=== PATIENT | female | born 1945 | race Caucasian/White ===

== ENCOUNTER 2016-07-26 12:31 | Day surgery (SDC) | payer OTHER, MEDICARE ==
[2016-07-26 12:10] LABS: EOSINOPHIL 4.1 % (0-4.5); MCH 23.1 pg (25.7-33.7); MCHC 28.8 g/dl (32.0-36.0); MEAN CELL VOLUME 80.1 fl (80-96); MEAN PLT VOLUME 10.1 fl (7.5-11.1); NEUTROPHILS 76.1 % (42.8-82.8); PLATELET COUNT 155 K/MM3 (134-434); RDW 20.1 % (11.6-15.6); WHITE BLOOD COUNT 6.3 K/mm3 (4.0-10.0)
[2016-07-26 12:32] LABS: ALBUMIN 3.4 g/dl (3.4-5.0); BILIRUBIN,TOTAL 0.3 mg/dL (0.2-1.0); CALCIUM 8.8 mg/dL (8.5-10.1); CREATININE 1.3 mg/dL (0.55-1.02); TOT PROT 7.6 g/dl (6.4-8.2)
[2016-07-26 14:38] LABS: PLATELET ESTIMATE ADEQUATE (NORMAL)
[2016-07-26 14:39] LABS: ANISOCYTOSIS 1+; HYPOCHROMIA 1+
[2016-07-26] MEDS ORDERED: FUROSEMIDE 20 MG TABLET (FP) PO ONE (18:00)
[2016-07-26 21:51] LABS: BASOPHIL 1.4 % (0-2.0); EOSINOPHIL 5.9 % (0-4.5); MCH 24.6 pg (25.7-33.7); MCHC 30.6 g/dl (32.0-36.0); MEAN CELL VOLUME 80.5 fl (80-96); MEAN PLT VOLUME 10.1 fl (7.5-11.1); NEUTROPHILS 58.7 % (42.8-82.8); RDW 18.6 % (11.6-15.6)
[2016-07-26 21:59] VITALS: BP 145/77; PULSE 62; TEMP 97.5
[2016-07-26 22:10] LABS: PLATELET COUNT 148 K/MM3 (134-434); PLATELET ESTIMATE DECREASED (NORMAL)
== END 2016-07-26 22:00 | disposition home or self-care (01) ==
LOC: JONCBLOOD 12:31 → J7W 12:32 → JONCBLOOD 22:00
PROVIDERS: ATTEND Internal Medicine Hematology & Oncology
PROC: 30233N1 Transfusion of Nonautologous Red Blood Cells into Peripheral Vein, Percutaneous Approach (ICD-10-PCS; principal; 2016-07-26)
DX: K90.9 Intestinal malabsorption, unspecified (principal); K50.811 Crohn's disease of both small and large intestine with rectal bleeding
CPT/HCPCS: 36415; 36430; 80053; 85025; 86850; 86900; 86901; 86922; P9038; P9058

== ENCOUNTER 2016-11-15 07:20 | Day surgery (SDC) | payer OTHER, MEDICARE ==
[2016-11-15] MEDS ORDERED: IRON SUCROSE INJECTION 100 MG in SODIUM CHLORIDE 100 ML IVPB ONE (08:00)
[2016-11-15 17:26] VITALS: BP 122/63; PULSE 63; TEMP 97.9
--- NOTE | 2016-11-15 23:38 | HP ---
[facility] - Chief Complaint History of Present Illness: for lópez today History Source: Patient Limitations to Obtaining History: No Limitations - Past Medical History Allergies/Adverse Reactions: Allergies Allergy/AdvReac Type Severity Reaction Status Date / Time bacitracin Allergy Verified 01/17/13 11:13 [From Neosporin ([id number])] bacitracin zinc Allergy Verified 01/17/13 11:13 [From Neosporin ([id number])] neomycin sulfate Allergy Verified 01/17/13 11:13 [From Neosporin ([id number])] Penicillins Allergy Verified 01/17/13 11:13 polymyxin B Allergy Verified 01/17/13 11:13 [From Neosporin ([id number])] prednisone Allergy Verified 01/17/13 11:13 - Current Medications Current Medications: Home Medications Medication Instructions Recorded Aspirin [ASA -] 81 mg PO DAILY 01/17/13 Atorvastatin Ca [Lipitor -] 20 mg PO HS 01/17/13 Azathioprine 50 mg PO BID 01/17/13 Baclofen 20 mg PO HS PRN 01/17/13 Cetirizine HCl [Zyrtec] 10 mg PO DAILY 01/17/13 Chlorthalidone 25 mg PO DAILY 01/17/13 Cyanocobalamin (Vitamin B-12) 1,000 mcg PO DAILY 01/17/13 [Vitamin B-12] Diphenhydramine HCl [Benadryl 50 mg PO HS 01/17/13 Capsules -] Ezetimibe [Zetia] 10 mg PO DAILY 01/17/13 Folic Acid - 5 mg PO HS 01/17/13 Levothyroxine [Synthroid -] 50 mcg PO DAILY 01/17/13 Lisinopril [Prinivil -] 40 mg PO BID 01/17/13 Meloxicam [Mobic -] 7.5 mg PO BID 01/17/13 Metoprolol Succinate [Toprol XL -] 50 mg PO DAILY 01/17/13 Metronidazole 0.75% Gel [Metrogel 1 applic TP HS 01/17/13 0.75% Gel -] Montelukast Na [Singulair -] 10 mg PO HS 01/17/13 Multivitamin [Multi-Day Vitamins] 1 each PO DAILY 01/17/13 Omeprazole 20 mg PO BID 01/17/13 Polyethylene Glycol 3350 [Miralax 17 gm PO DAILY 01/17/13 255 gm Btl -] Pregabalin [Lyrica] 300 mg PO TID 01/17/13 Temazepam [Restoril] 45 mg PO HS 01/17/13 Tramadol HCl 200 mg PO DAILY 01/17/13 Zaleplon 10 mg PO HS PRN 01/17/13 Ascorbic Acid [Vitamin C] 500 mg PO DAILY 02/07/13 Satellite Physical Exam - Physical Examination Vital Signs: Vital Signs Period Temp Pulse Resp BP Sys/Fagan Pulse Ox Last 24 Hr 97.9 F 63 20 122/63 General Appearance: Well Nourished, Well Developed Lung: Clear to auscultation Heart: Regular rate & rhythm Breasts: Soft, Non-Tender Extremities: No edema Satellite Impression/Plan - Impression/Plan Impression: lópez today. next dose 11/29. folow-up in [facility] on 12/06. will obtain recent blood work resuls from 's office. Pt states that she had done blood work last week.
== END 2016-11-15 17:26 | disposition home or self-care (01) ==
LOC: JONCNONCHE 07:20 → J7W 16:10 → JONCNONCHE 17:26
PROVIDERS: ATTEND Internal Medicine Hematology & Oncology
PROC: 3E033GC Introduction of Other Therapeutic Substance into Peripheral Vein, Percutaneous Approach (ICD-10-PCS; principal; 2016-11-15)
DX: D50.9 Iron deficiency anemia, unspecified (principal)
CPT/HCPCS: 96365; J1756

== ENCOUNTER 2016-12-27 07:40 | Day surgery (SDC) | payer OTHER, MEDICARE ==
[2016-12-27] MEDS ORDERED: IRON SUCROSE INJECTION 100 MG in SODIUM CHLORIDE 100 ML IVPB ONE (10:00)
[2016-12-27 16:28] VITALS: BP 160/89; PULSE 74; TEMP 97.5
== END 2016-12-27 20:45 | disposition home or self-care (01) ==
LOC: JONCNONCHE 07:40 → J7W 16:03 → JONCNONCHE 20:45
PROVIDERS: ATTEND Internal Medicine Hematology & Oncology
PROC: 3E033GC Introduction of Other Therapeutic Substance into Peripheral Vein, Percutaneous Approach (ICD-10-PCS; principal; 2016-12-27)
DX: E61.1 Iron deficiency (principal); K90.9 Intestinal malabsorption, unspecified
CPT/HCPCS: 76700-TC; 93970-TC; 96365; J1756

== ENCOUNTER 2017-05-04 07:35 | Day surgery (SDC) | payer OTHER, MEDICARE ==
[2017-05-04] MEDS ORDERED: IRON SUCROSE INJECTION 100 MG in SODIUM CHLORIDE 100 ML IVPB ONE (10:00)
[2017-05-04 14:36] VITALS: BP 166/91; PULSE 73; TEMP 98.1
== END 2017-05-04 12:50 | disposition home or self-care (01) ==
LOC: JONCNONCHE 07:35 → J7W 11:37 → JONCNONCHE 12:50
PROVIDERS: ATTEND Internal Medicine Hematology & Oncology
PROC: 3E033GC Introduction of Other Therapeutic Substance into Peripheral Vein, Percutaneous Approach (ICD-10-PCS; principal; 2017-05-04)
DX: E61.1 Iron deficiency (principal); K90.9 Intestinal malabsorption, unspecified
CPT/HCPCS: 96365; J1756

== ENCOUNTER 2017-06-17 16:28 | Inpatient (IN) | payer OTHER, MEDICARE ==
[2017-06-17] MEDS ORDERED: morphine CARPU-JECT 4 MG/1 ML DISP.SYRIN IM ONE (17:32)
[2017-06-17] MEDS ORDERED: morphine SULFATE 4 MG/ML VIAL ONE ×2 (17:47→18:53)
[2017-06-17] MEDS ORDERED: ONDANSETRON 4 MG/2 ML VIAL ONE (18:13)
[2017-06-17] MEDS ORDERED: ONDANSETRON 4 MG/2 ML VIAL IVPB ONE (18:23)
[2017-06-17] MEDS ORDERED: SODIUM CHLORIDE 1,000 ML IV ONE (18:23)
--- NOTE | 2017-06-17 18:24 | PDOC ---
History of Present Illness - General History Source: Patient Exam Limitations: No Limitations - History of Present Illness Initial Comments: 06/17/17 19:30 The patient is a 71 year old female, with a significant past medical history of arthritis, CIDP, chronic pain, and multiple spinal problems, who presents to the emergency department s/p fall with 2 days of left sided neck pain radiating down to the left arm. As per patient, she woke up early Sunday morning to use the bathroom when she turned the radio while sitting sideways on the toilet bowl. She reports falling asleep and falling forward into the tub on her right side of her head on the sink and compressing her chin down into her chest. She reports alternating between both ice and heat to the left side of her neck and shoulder. Secondary to her symptoms, she reports difficulty moving her head. She reports taking her prescription Oxycodone for the pain with minimal relief. Pt went to urgent care had an xray that was indetermitnent of fracture and was referred to [facility]. No new numbness/tingling/weakness. no urinary or bowel incontinence. She denies recent fevers, chills, or dizziness. She denies recent nausea, vomit , diarrhea or constipation. She denies recent dysuria, frequency, urgency or hematuria. She denies recent chest pain. Past surgical history: None reported. Social history: Nonsmoker. Denies EtOH use and recreational drug use. Primary Care Physician: Dr. Rito Cook <Nicole Ambrocio - Last Filed: 06/17/17 19:29> <Nigel Lane - Last Filed: 06/17/17 19:46> - General Chief Complaint: Injury Stated Complaint: NECK PAIN S/P FALL Time Seen by Provider: 06/17/17 16:31 Past History <Nicole Ambrocio - Last Filed: 06/17/17 19:29> - Past Medical History Anemia: No Asthma: Yes Cancer: No Cardiac Disorders: No CVA: No COPD: No CHF: No Dementia: No Diabetes: No GI Disorders: Yes (CHRONS IN REMISSION, HIATAL HERNIA,HEMORRHOIDECTOMY) Disorders: No HTN: Yes Hypercholesterolemia: Yes Liver Disease: No Seizures: No Thyroid Disease: Yes (HYPOTHYROIDISM) - Surgical History Abdominal Surgery: No Appendectomy: No Cardiac Surgery: No Cholecystectomy: No Lung Surgery: No Neurologic Surgery: Yes Orthopedic Surgery: Yes (LEFT HIP REPLACEMENT) - Suicide/Smoking/Psychosocial Hx Smoking History: Current every day smoker Number of Cigarettes Smoked Daily: 40 Information on smoking cessation initiated: Yes 'Breaking Loose' booklet given: 06/17/17 Hx Alcohol Use: No Drug/Substance Use Hx: No Substance Use Type: None Hx Substance Use Treatment: No <ArianaNigel - Last Filed: 06/17/17 19:46> - Past Medical History Allergies/Adverse Reactions: Allergies Allergy/AdvReac Type Severity Reaction Status Date / Time bacitracin Allergy Verified 06/17/17 16:43 [From Neosporin ([id number])] bacitracin zinc Allergy Verified 06/17/17 16:43 [From Neosporin ([id number])] neomycin sulfate Allergy Verified 06/17/17 16:43 [From Neosporin ([id number]-mal-[id number])] Penicillins Allergy Verified 06/17/17 16:43 polymyxin B Allergy Verified 06/17/17 16:43 [From Neosporin ([id number])] prednisone Allergy Verified 06/17/17 16:43 Home Medications: Ambulatory Orders Baclofen 10 mg PO HS PRN 01/17/13 Levothyroxine [Synthroid -] 50 mcg PO DAILY 01/17/13 Lisinopril [Prinivil -] 20 mg PO BID 01/17/13 Meloxicam [Mobic -] 7.5 mg PO BID 01/17/13 Metoprolol Succinate [Toprol XL -] 25 mg PO DAILY 01/17/13 Pregabalin [Lyrica] 300 mg PO BID 01/17/13 Atorvastatin Ca [Lipitor] 30 mg PO HS 06/17/17 Baclofen 5 mg PO BID 06/17/17 Docusate Sodium [Colace] 100 mg PO BID 06/17/17 Duloxetine HCl [Cymbalta] 80 mg PO AM 06/17/17 Leucovorin Calcium 5 mg PO HS 06/17/17 Ranitidine HCl [Zantac] 150 mg PO BID 06/17/17 Trazodone HCl 50 mg PO HS 06/17/17 oxyCODONE SR [Oxycontin] 5 mg PO DAILY PRN 06/17/17 oxyCODONE SR [Oxycontin] 10 mg PO BID 06/17/17 Review of Systems - Review of Systems Able to Perform ROS?: Yes Comments:: 06/17/17 19:31 CONSTITUTIONAL: No reported: Fever, Chills, Diaphoresis, Generalized Weakness, Malaise, Loss of Appetite HEENT: No reported: Rhinorrhea, Nasal Congestion, Throat Pain, Throat Swelling, Difficulty Swallowing, Mouth Swelling, Ear Pain, Eye Pain, Visual Changes CARDIOVASCULAR: No reported: Chest Pain, Syncope, Palpitations, Irregular Heart Rate, Lightheadedness, Peripheral Edema RESPIRATORY: No reported: Cough, Shortness of Breath, SOB with Exertion, Orthopnea, Wheezing , Stridor, Hemoptysis GASTROINTESTINAL: No reported: Abdominal pain, Abdominal Distension, Nausea, Vomiting, Diarrhea, Constipation, Melena, Hematochezia GENITOURINARY: No reported: Dysuria, Frequency, Urgency, Hesitancy, Flank Pain, Genital Pain MUSCULOSKELETAL: Left sided neck and shoulder pain. No reported: Arthralgia, Joint Swelling, Back pain SKIN: No reported: Rash, Itching, Pallor HEMEATOLOGIC/IMMUNOLOGIC: No reported: Easy Bleeding, Easy Bruising, Lymphadenopathy, Frequent infections ENDOCRINE: No reported: Unexplained Weight Gain, Unexplained Weight Loss, Heat Intolerance , Cold Intolerance NEUROLOGIC: No reported: Headache, Focal Weakness, Paresthesias, Vertigo, Lightheadedness, Unsteady Gait, Seizure, Mental Status Changes, Incontinence PSYCHIATRIC: No reported: Anxiety, Depression <Nicole Ambrocio - Last Filed: 06/17/17 19:29> *Physical Exam - Vital Signs Last Vital Signs Temp Pulse Resp BP Pulse Ox 98.3 F 92 H 18 159/90 100 06/17/17 16:30 06/17/17 16:30 06/17/17 16:30 06/17/17 16:30 06/17/17 16:30 - Physical Exam Comments: 06/17/17 19:31 GENERAL: The patient is awake and alert,, Nontoxic - in no acute distress. HEAD: Normocephalic, atraumatic. EYES: extraocular movements intact, sclera anicteric, conjunctiva clear. ENT: Normal voice, Moist mucous membranes. NECK: mild diffuse tenderness to cervical spine, +hypertrophied L posterior cervical muscles LUNGS: Breath sounds equal, clear to auscultation bilaterally. No wheezes, no rhonchi, no rales. HEART: Regular rate and rhythm, without murmur, rub or gallop. ABDOMEN: Soft, nontender, No guarding, no rebound.No CVA tenderness EXTREMITIES: Normal range of motion, no edema. NEUROLOGICAL: No facial asymmetry, Normal speech, movnig all 4 extremities spontaneously and symmetrically. sensation at baseline. PSYCH: Normal mood, normal affect. SKIN: Warm, Dry, normal turgor, <Nicole Ambrocio - Last Filed: 06/17/17 19:29> - Vital Signs Last Vital Signs Temp Pulse Resp BP Pulse Ox 98.3 F 92 H 18 159/90 100 06/17/17 16:30 06/17/17 16:30 06/17/17 16:30 06/17/17 16:30 06/17/17 16:30 <Nigel Lane - Last Filed: 06/17/17 19:46> ED Treatment Course - LABORATORY CBC & Chemistry Diagram: 06/17/17 19:20 06/17/17 19:20 - Medications Given in the ED: ED Medications Discontinued Medications Generic Name Dose Route Start Last Admin Trade Name Emmettq PRN Reason Stop Dose Admin Morphine Sulfate 4 mg 06/17/17 18:41 06/17/17 18:41 Morphine Injection - IVPUSH 06/17/17 18:42 4 mg NOW ONE Administration Ondansetron HCl 4 mg 06/17/17 18:23 06/17/17 18:26 Zofran Injection IVPB 06/17/17 18:24 4 mg ONCE ONE Administration <Nicole Ambrocio - Last Filed: 06/17/17 19:29> - LABORATORY CBC & Chemistry Diagram: 06/17/17 19:20 06/17/17 19:20 - RADIOLOGY Radiology Studies Ordered: Category Date Time Status CERVICAL SPINE CT W/O CONTR [CT] Stat CT Scan 06/17/17 17:30 Ordered <Nigel Lane - Last Filed: 06/17/17 19:46> Medical Decision Making - Medical Decision Making 6:57pm Call placed to Dr. Brito's answering service, cardiovascular sonographer neurosurgery, awaiting call back. 7:20pm Call returned from Dr. Brito, case discussed. EXAM: CT CERVICAL SPINE WITHOUT CONTRAST: FINDINGS: Reversal of normal alignment with anterior translation of C3 on C4 by 5 mm, and 6 mm anterior translation of C7 on T1. There is a right side interfacet fracture line at C7- T1 suspected. Irregular endplate cortical destructive changes with sclerosis involving the endplates at C5-6 can be seen in the setting of discitis and osteomyelitis. This is associated with prominent disc osteophyte complex resulting moderate central canal stenosis with AP diameter of 6-7 mm. No evidence of jumped facet, Demineralized bony matrix with degenerative endplate changes and disc disease. Minimally displace fracture through the odontoid and into the right lateral mass of C2 is seen. Prevertebral and paraspinal soft tissues are unremarkable. Occipital condyles, C1 ring are intact. No pneumothorax identified in the lung apices. IMPRESSION: Odontoid fracture type III Irregular bony endplate changes at C5-6 concerning for spondylodiscitis with presence of spinal stenosis. If there are no prior studies available to establish stability and chronicity, recommend MRI without and with contrast. Degenerative disc disease and spondylosis with anterior subluxations at C3 on C4 and C7 on T1 possibly chronic from advance facet arthropathy vs trauma related. 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 pt with L neck pain since, unabl eto ROM her neck . no loc, n/v, vision cahgnes, new numbness/tingling/weakness. was seen in urgent care with an xray that was nondiagnosti, and sent to ED for evlution. on exam pt has notable hypertrophy/spasm of the L trapezius/parapsinal muscles pt was placed in a cervical collar (hard color not availble) will obtain a CT of the neck to r/o fx morphine for pain zofran for nausea will reassess 06/17/17 19:[address] noted for a type 3 odontoid fracture NS paged. anticipate admission for pain control and evaluation. pt still in color, given antoher dose of morphine for her pain. case signed out to dr. burton for disposition 06/17/17 19:[address] Sharif Carroll - agrees with admission and requests MRI to further evlauate case was discussed with LENY Torres - agree with admission for further management per family friend pt also frquently drinks etoh. 06/17/17 19:46 <Nigel Lane - Last Filed: 06/17/17 19:46> *DC/Admit/Observation/Transfer - Attestations Scribe Attestion: 06/17/17 18:58 Documentation prepared by Nicole Ambrocio, acting as medical device sales representative for Nigel Lane MD. <Nicole Ambrocio - Last Filed: 06/17/17 19:29> - Discharge Dispostion Admit: Yes <Nigel Lane - Last Filed: 06/17/17 19:46> Diagnosis at time of Disposition: Odontoid fracture with type III morphology Qualifiers: Encounter type: initial encounter Fracture type: closed Qualified Code(s): S12.120A - Other displaced dens fracture, initial encounter for closed fracture - Discharge Dispostion Condition at time of disposition: Guarded - Referrals - Patient Instructions Printed Discharge Instructions: Smoking Cessation - Post Discharge Activity
[2017-06-17] MEDS ORDERED: morphine CARPU-JECT 4 MG/1 ML DISP.SYRIN IVPUSH ONE (18:41)
[2017-06-17] MEDS ORDERED: morphine CARPU-JECT 2 MG/1 ML DISP.SYRIN IVPUSH ONE (18:46)
[2017-06-17 19:42] LABS: BASO % 0.2 % (0-2.0); HEMATOCRIT 38.6 % (32.4-45.2); HEMOGLOBIN 12.6 GM/dl (10.7-15.3); MCH 30.3 pg (25.7-33.7); MCHC 32.5 g/dl (32.0-36.0); MEAN PLT VOLUME 9.8 fl (7.5-11.1); NEUT % 71.8 % (42.8-82.8); RBC 4.15 M/mm3 (3.60-5.2); RDW 20.2 % (11.6-15.6); WHITE BLOOD COUNT 8.6 K/mm3 (4.0-10.8)
[2017-06-17 19:46] LABS: INR 1.06 (0.82-1.09); PROTHROMBIN TIME (PATIENT) 11.9 SEC (10.2-13.0)
[2017-06-17 19:50] LABS: ALBUMIN 3.2 g/dl (3.5-5.0); ALK PHOS 71 U/L (32-92); ANION GAP 9 (8-16); BILIRUBIN,TOTAL 0.6 mg/dl (0.2-1.0); BLOOD UREA NITROGEN 25 mg/dl (7-18); CALCIUM 8.7 mg/dl (8.4-10.2); CHLORIDE 98 mmol/L (98-107); CO2 27 mmol/L (22-28); CREATININE 0.8 mg/dl (0.6-1.3); GLUCOSE,RANDOM 83 mg/dl (74-106); POTASSIUM 4.2 mmol/L (3.5-5.1); SGOT/AST 28 U/L (10-42); SGPT/ALT 13 U/L (10-40); SODIUM 134 mmol/L (136-145); TOT PROT 7.2 g/dl (6.4-8.3)
[2017-06-17 19:53] LABS: ADD RBC MORPHOLOGY YES
[2017-06-17 20:26] LABS: ANISOCYTOSIS 2+; MACROCYTOSIS 1+; PLATELET ESTIMATE DECREASED
[2017-06-17 20:28] LABS: PLATELET COUNT 83 K/MM3 (134-434)
[2017-06-17 21:59] VITALS: BMI 24.0
[2017-06-17] MEDS: morphine SULFATE 4 MG/ML VIAL IVPUSH PRN (22:10)
--- NOTE | 2017-06-17 23:46 | HP ---
CHIEF COMPLAINT: neck pain s/p fall PCP: Joey HISTORY OF PRESENT ILLNESS: This is a 71 year old female with a significant past medical history of spinal stenosis, demyelinating polyneuropathy, arthritis who presented to the ED earlier today after falling in the supervisor twisting department the day before. Pt states that she fell asleep on the toilet and fell and hit her head/neck on tub. Neck was in flexed position. She has been treating neck with heat and ice without relief. On exam, pt reports neck is sore and collar is very uncomfortable. ER course was notable for: (1) CT c spine with odontoid fracture (2) platelet count 83 Recent Travel: pt denies PAST MEDICAL HISTORY: CIDP (chronic inflammatory demyelinating polyneuropathy), arthritis, chronic pain, spinal stenosis ("the whole spine"), asthma, HTN, HLD, iron deficiency anemia (requiring IV iron in April and May), hypothyroid, hiatal hernia PAST SURGICAL HISTORY: 3 hip surgeries, both hips hysterectomy Social History: Smokinppd Alcohol: 1 drink per day as per pt (neighbor/friend reports more) Drugs: pt denies Family History: mother and father in their 60s, pt unsure of cause Allergies bacitracin [From Neosporin ([id number])] Allergy (Verified 06/17/17 16:43) bacitracin zinc [From Neosporin ([id number])] Allergy (Verified 06/17/17 16: 43) neomycin sulfate [From Neosporin ([id number]-knb-lqswy)] Allergy (Verified 06/17/17 16: 43) Penicillins Allergy (Verified 06/17/17 16:43) polymyxin B [From Neosporin ([id number]-[id number]-[id number])] Allergy (Verified 06/17/17 16:43) prednisone Allergy (Verified 06/17/17 16:43) HOME MEDICATIONS: 3 Medication Instructions Recorded Baclofen 10 mg PO HS PRN 01/17/13 Levothyroxine [Synthroid -] 50 mcg PO DAILY 01/17/13 Lisinopril [Prinivil -] 20 mg PO BID 01/17/13 Meloxicam [Mobic -] 7.5 mg PO BID 01/17/13 Metoprolol Succinate [Toprol XL -] 25 mg PO DAILY 01/17/13 Pregabalin [Lyrica] 300 mg PO BID 01/17/13 Atorvastatin Ca [Lipitor] 30 mg PO HS 06/17/17 Baclofen 5 mg PO BID 06/17/17 Docusate Sodium [Colace] 100 mg PO BID 06/17/17 Duloxetine HCl [Cymbalta] 80 mg PO AM 06/17/17 Leucovorin Calcium 5 mg PO HS 06/17/17 Ranitidine HCl [Zantac] 150 mg PO BID 06/17/17 Trazodone HCl 50 mg PO HS 06/17/17 oxyCODONE SR [Oxycontin] 5 mg PO DAILY PRN 06/17/17 oxyCODONE SR [Oxycontin] 10 mg PO BID 06/17/17 REVIEW OF SYSTEMS CONSTITUTIONAL: Absent: fever, chills, diaphoresis, generalized weakness, malaise, loss of appetite, weight change HEENT: Absent: rhinorrhea, nasal congestion, throat pain, throat swelling, difficulty swallowing, mouth swelling, ear pain, eye pain, visual changes CARDIOVASCULAR: Absent: chest pain, syncope, palpitations, irregular heart rate, lightheadedness , peripheral edema RESPIRATORY: Absent: cough, shortness of breath, dyspnea with exertion, orthopnea, wheezing, stridor, hemoptysis GASTROINTESTINAL: Absent: abdominal pain, abdominal distension, nausea, vomiting, diarrhea, constipation, melena, hematochezia GENITOURINARY: Absent: dysuria, frequency, urgency, hesitancy, hematuria, flank pain, genital pain MUSCULOSKELETAL: Present: neck pain Absent: myalgia, arthralgia, joint swelling, back pain SKIN: Absent: rash, itching, pallor HEMATOLOGIC/IMMUNOLOGIC: Absent: easy bleeding, easy bruising, lymphadenopathy, frequent infections ENDOCRINE: Absent: unexplained weight gain, unexplained weight loss, heat intolerance, cold intolerance NEUROLOGIC: Absent: headache, focal weakness or paresthesias, dizziness, unsteady gait, seizure, mental status changes, bladder or bowel incontinence PSYCHIATRIC: Absent: anxiety, depression, suicidal or homicidal ideation, hallucinations. PHYSICAL EXAMINATION Vital Signs - 24 hr 3 06/17/17 06/17/17 06/17/17 16:30 18:50 19:02 Temperature 98.3 F Pulse Rate 92 H Pulse Rate [ 78 Apical] Respiratory 18 16 Rate Blood Pressure 159/90 Blood Pressure 156/86 [Arm] O2 Sat by Pulse 100 93 L 100 Oximetry (%) 3 06/17/17 06/17/17 19:57 21:45 Temperature 98.3 F Pulse Rate 64 Pulse Rate [ 82 Apical] Respiratory 16 Rate Blood Pressure 159/82 Blood Pressure 157/89 [Arm] O2 Sat by Pulse 99 90 L Oximetry (%) GENERAL: Awake, alert, and fully oriented, in no acute distress. HEAD: Normal with no signs of trauma. EYES: Pupils equal, round and reactive to light, extraocular movements intact, sclera anicteric, conjunctiva clear. No lid lag. EARS, NOSE, THROAT: Ears normal, nares patent, oropharynx clear without exudates. Moist mucous membranes. NECK: Normal range of motion, supple without lymphadenopathy, JVD, or masses. LUNGS: diffuse expiratory wheezing bilat. No accessory muscle use. HEART: Regular rate and rhythm, normal S1 and S2 without murmur, rub or gallop. ABDOMEN: Soft, nontender, not distended, normoactive bowel sounds, no guarding, no rebound, no masses. No hepatomegaly or splenomegaly. MUSCULOSKELETAL: Normal range of motion at all joints. No bony deformities or tenderness. No CVA tenderness. UPPER EXTREMITIES: 2+ pulses, warm, well-perfused. No cyanosis. No clubbing. No peripheral edema. LOWER EXTREMITIES: 2+ pulses, warm, well-perfused. No calf tenderness. No peripheral edema. NEUROLOGICAL: Cranial nerves II-XII intact. Normal speech. Ambulates with walker, gait unsteady. no neurodeficits appreciated PSYCHIATRIC: Cooperative. Good eye contact. Appropriate mood and affect. SKIN: Warm, dry, normal turgor, no rashes or lesions noted, normal capillary refill. Laboratory Results - last 24 hr 3 06/17/17 06/17/17 06/17/17 19:20 19:20 19:20 19:45 WBC 8.6 RBC 4.15 Hgb 12.6 Hct 38.6 MCV 93.0 MCH 30.3 MCHC 32.5 RDW 20.2 H Plt Count 83 L MPV 9.8 Neutrophils % 71.8 Lymphocytes % 11.0 Monocytes % 14.0 H Eosinophils % 3.0 Basophils % 0.2 Platelet Estimate Decreased Platelet Comment No clumping noted Anisocytosis 2+ Microcytosis 1+ Macrocytosis 1+ PT with INR 11.9 INR 1.06 Sodium 134 L Potassium 4.2 Chloride 98 Carbon Dioxide 27 Anion Gap 9 BUN 25 H Creatinine 0.8 Creat Clearance w eGFR > 60 Random Glucose 83 Calcium 8.7 Total Bilirubin 0.6 AST 28 ALT 13 Alkaline Phosphatase 71 Total Protein 7.2 Albumin 3.2 L Alcohol, Quantitative < 5.0 Blood Type O NEGATIVE Antibody Screen Negative ECG Sinus rhythm with first degree AV block vent rate 62, QTC 438 moderate voltage criteria for LVH No acute ST/T wave changes CT C spine THIS IS A PRELIMINARY REPORT FROM [employer] [employer] [facility]AL[employer] [facility]URANCE ENGINEER IMPRESSION: Odontoid fracture type III Irregular bony endplate changes at C5-6 concerning for spondylodiscitis with presence of spinal stenosis. If there are no prior studies available to establish stability and chronicity, recommend MRI without and with contrast. Degenerative disc disease and spondylosis with anterior subluxations at C3 on C4 and C7 on T1 possibly chronic from advance facet arthropathy vs trauma related. Findings discussed with DR MANNING at 1851 hrs EST THIS DOCUMENT HAS BEEN ELECTRONICALLY SIGNED Deepa Navarro D.O. 06/17/2017 18:58 EST ASSESSMENT/PLAN: 71yF with PMH CIDP (chronic inflammatory demyelinating polyneuropathy), arthritis, chronic pain, spinal stenosis ("the whole spine"), asthma, HTN, HLD, iron deficiency anemia (requiring IV iron in April and May), hypothyroid, hiatal hernia presented to the ED s/p fall with neck pain. Odontoid fracture - ED d/w neurosurgery, Dr. Brito who recommends MRI - Hard cervical collar in place (changed to a smaller size for better fit. - pt advised to keep collar in place - morphine for pain. Daughter called and reported pt had itching with morphine in past; however pt has received 3 doses with no adverse reaction. will monitor - docusate for opioid use - PT consult when cleared by neurosurgery chronic pain/CIDP - cont home meds: lyrica, cymbalta, baclofen, hold mobic in case of upcoming surgery hypertension - cont home toprol and lisinopril hyperlipidemia - cont home atorvastatin asthma - albuterol neb PRN, if ineffective, pulm consult anemia and thrombocytopenia - under the care of Dr. Mccormick, consider consult if surgical candidate - cont leucovorin hypothyroid - cont home synthroid DVT PPX - defer heparin use in event of surgery, cautious use in patient with thrombocytopenia FEN - tolerating po - BMP in am - low sodium diet in am unless surgery Dispo: pt currently requires inpatient management of her emergent condition. Visit type - Emergency Visit Emergency Visit: Yes ED Registration Date: 06/17/17 Care time: The patient presented to the Emergency Department on the above date and was hospitalized for further evaluation of their emergent condition. - New Patient This patient is new to me today: Yes Date on this admission: 06/17/17 - Critical Care Critical Care patient: No Hospitalist Screening - Colonoscopy Questionnaire Colonoscopy Questionnaire: Colonoscopy Questionnaire - Patient: 50 - 75 years old and never had a screening colonoscopy: No History of colon or rectal polyps, or CA: No History of IBD, Crohn's disease or UC: No History of abdominal radiation therapy as a child: No - Relative: 1 with colon or rectal CA, or polyps at age 60 or younger: Unknown Colon or rectal CA diagnosed at age 45 or younger: Unknown Multiple relatives with colon or rectal CA: Unknown - Outcome: Screening Result: Negative Screen
[2017-06-18] MEDS ORDERED: ALBUTEROL SO4 0.083% IH SOL 2.5 MG/3 ML VIAL.NEB. NEB PRN (00:29)
[2017-06-18] MEDS: morphine SULFATE 4 MG/ML VIAL IVPUSH PRN ×4 (03:38→14:20)
[2017-06-18] MEDS ORDERED: morphine SULFATE 4 MG/ML VIAL IVPUSH ONE (04:03)
[2017-06-18] MEDS ORDERED: BACLOFEN 10 MG TABLET (FP) PO PRN (07:44)
[2017-06-18 07:50] LABS: HEMATOCRIT 37.6 % (32.4-45.2); HEMOGLOBIN 12.2 GM/dl (10.7-15.3); MCH 30.1 pg (25.7-33.7); MCHC 32.4 g/dl (32.0-36.0); MEAN PLT VOLUME 9.4 fl (7.5-11.1); RBC 4.04 M/mm3 (3.60-5.2); RDW 20.4 % (11.6-15.6)
[2017-06-18 08:05] LABS: ANION GAP 5 (8-16); BLOOD UREA NITROGEN 18 mg/dl (7-18); CALCIUM 8.9 mg/dl (8.4-10.2); CHLORIDE 104 mmol/L (98-107); CO2 30 mmol/L (22-28); GLUCOSE,RANDOM 95 mg/dl (74-106); MAGNESIUM 1.9 mg/dL (1.8-2.4); PHOSPHOROUS 4.3 mg/dl (2.5-4.6); POTASSIUM 4.9 mmol/L (3.5-5.1); SODIUM 139 mmol/L (136-145)
[2017-06-18] MEDS ORDERED: DULoxetine HCL 20 MG CAPSULE.DR (FP) PO SCH (08:15)
[2017-06-18] MEDS ORDERED: LEVOTHYROXINE NA 50 MCG TABLET (FP) PO SCH (08:15)
--- NOTE | 2017-06-18 08:19 | PN ---
Physical Exam: SUBJECTIVE: Patient seen and examined, reports ongoing posterior neck pain, denies any paresthesia to the upper extremities, she wants to go outside to smoke a cigarrette. OBJECTIVE: Patient is a 71 y/o female with a past medical history of CIDP ( chronic inflammatory demyelinating polyneuropathy, receives IVIG infusions, every other week), rhemuotoid arthritis, chronic pain secondary to spinal stenosis ("the whole spine"), asthma (smokes 2 packs a cigarettes a day), HTN, HLD, iron deficiency anemia (requiring IV iron in April and May), hypothyroid, and hiatal hernia. Patient was admitted from the emergency department for c2 fracture. Vital Signs Period Temp Pulse Resp BP Sys/Fagan Pulse Ox Last 24 Hr 98.1 F-98.3 F 64-92 16-18 149-159/82-90 90-100 GENERAL: The patient is awake, alert, and fully oriented, in no acute distress. HEAD: Normal with no signs of trauma. EYES: PERRL, extraocular movements intact, sclera anicteric, conjunctiva clear. No ptosis. ENT: Ears normal, nares patent, oropharynx clear without exudates, moist mucous membranes. NECK: philadephia collar in place, Trachea midline, full range of motion, supple. LUNGS: Breath sounds equal, course rhonchi bilateral apexes, diminished to bases , no wheezes, no crackles, no accessory muscle use. HEART: Regular rate and rhythm, S1, S2 without murmur, rub or gallop. ABDOMEN: Soft, nontender, nondistended, normoactive bowel sounds, no guarding, no rebound, no hepatosplenomegaly, no masses. EXTREMITIES: 2+ pulses, warm, well-perfused, no edema. NEUROLOGICAL: Cranial nerves II through XII grossly intact. Normal speech, gait not observed. PSYCH: Normal mood, normal affect. SKIN: Warm, dry, normal turgor, no rashes or lesions noted Laboratory Results - last 24 hr 06/17/17 06/17/17 06/17/17 19:20 19:20 19:20 WBC 8.6 RBC 4.15 Hgb 12.6 Hct 38.6 MCV 93.0 MCH 30.3 MCHC 32.5 RDW 20.2 H Plt Count 83 L MPV 9.8 Neutrophils % 71.8 Lymphocytes % 11.0 Monocytes % 14.0 H Eosinophils % 3.0 Basophils % 0.2 Platelet Estimate Decreased Platelet Comment No clumping noted Anisocytosis 2+ Microcytosis 1+ Macrocytosis 1+ PT with INR 11.9 INR 1.06 Sodium 134 L Potassium 4.2 Chloride 98 Carbon Dioxide 27 Anion Gap 9 BUN 25 H Creatinine 0.8 Creat Clearance w eGFR > 60 Random Glucose 83 Calcium 8.7 Total Bilirubin 0.6 AST 28 ALT 13 Alkaline Phosphatase 71 Total Protein 7.2 Albumin 3.2 L Alcohol, Quantitative Blood Type Antibody Screen 06/17/17 06/17/17 19:45 19:45 WBC RBC Hgb Hct MCV MCH MCHC RDW Plt Count MPV Neutrophils % Lymphocytes % Monocytes % Eosinophils % Basophils % Platelet Estimate Platelet Comment Anisocytosis Microcytosis Macrocytosis PT with INR INR Sodium Potassium Chloride Carbon Dioxide Anion Gap BUN Creatinine Creat Clearance w eGFR Random Glucose Calcium Total Bilirubin AST ALT Alkaline Phosphatase Total Protein Albumin Alcohol, Quantitative < 5.0 Blood Type O NEGATIVE Antibody Screen Negative Active Medications Generic Name Dose Route Start Last Admin Trade Name Freq PRN Reason Stop Dose Admin Albuterol Sulfate 1 amp 06/18/17 00:29 06/18/17 07:36 Ventolin 0.083% Nebulizer Soln - NEB 1 amp Q4H PRN Administration SHORT OF BREATH/WHEEZING Aspirin 81 mg 06/18/17 22:00 Ecotrin - PO HS RICCI Atorvastatin Calcium 30 mg 06/18/17 22:00 Lipitor - PO HS RICCI Baclofen 5 mg 06/18/17 10:00 Lioresal - PO DAILY@1000 RICCI Baclofen 10 mg 06/18/17 22:00 Lioresal - PO HS RICCI Docusate Sodium 100 mg 06/18/17 10:00 Colace - PO BID RICCI Duloxetine HCl 80 mg 06/18/17 08:15 Cymbalta - PO AM RICCI Levothyroxine Sodium 50 mcg 06/18/17 08:15 Synthroid - PO DAILY@0700 RICCI Lisinopril 20 mg 06/18/17 10:00 Prinivil PO DAILY RICCI Metoprolol Succinate 25 mg 06/18/17 10:00 Toprol Xl - PO BID RICCI Montelukast Sodium 10 mg 06/18/17 10:00 Singulair - PO DAILY RICCI Morphine Sulfate 4 mg 06/17/17 22:00 06/18/17 07:38 Morphine Sulfate IVPUSH 4 mg Q4H PRN Administration PAIN LEVEL 6-10 Non-Formulary Medication 10 mg 06/18/17 07:44 Baclofen [Baclofen] PO HS PRN MUSCLE SPASMS Non-Formulary Medication 5 mg 06/18/17 22:00 Leucovorin Calcium [Leucovorin Calcium] PO HS RICCI Non-Formulary Medication 7.5 mg 06/18/17 10:00 Meloxicam PO BID RICCI Pantoprazole Sodium 40 mg 06/18/17 10:00 Protonix - PO BID RICCI Pregabalin 300 mg 06/18/17 10:00 Lyrica - PO BID RICCI Trazodone HCl 50 mg 06/18/17 22:00 Desyrel - PO HS RICCI IMAGING ct of cervical spine w/o contrast: grade 1 anterolisthesis of c3 over c4 and c7 over T1, lucency at base of dense extending to the right lateral mass of C2, w/ o gross displacement, ? non displaced fracture involving the right facet joint of c7-T1 as per radiologist Dr Steinberg chest xray:large heart, scolosiis, hiatal hernia ASSESSMENT/PLAN: 1) MS C2 fracture - pending MRI of cervical spine - continue philadephia collar at all times with neurovascular checks - Dr Hannon, neurosurgeon, consulted and following, case discussed with Dr Hannon, patient may require surgical intervention, depending on MRI resultes spinal stenosis chronic pain - continue home dose lyrica, oxycontin and oxycodone, medications verified w/ [place] [employer] reference # [id number] - patient will require outpatient management with private pain management physician, Dr Frazier pro 2) cardiovascular hypertension - continue toprol and lisinopril, monitor b/p q4h hyperlipidemia - continue lipitor 3) endo hypothyroidism - continue home dose synthroid, pending tsh 4) psych anxiety/depression - continue home dose cymbalta and trazadone alcohol use - pt reports drinking 1 glass of wine daily, will monitor for signs of alcohol withrdrawl tobacco use - smoke 2 packs a day, start nicorrette gum 4) pulm asthma - no acute exacerbation at this time, continue albuterol nebulizers prn 5) hem/onc folic/iron deficency anemia - has received venofer in the past, last dose was may as per patient - continue home dose leucorvin - appreciate the input of hem/onc, Dr Mccormick, patient's private oncologist for pre-op clearance thrombocytopenia - pt reports known history, discussed with Dr Mccormick, last plts 05/27, 70's, type and screen sent, close monitoring F/E/N - low sodium diet - replete lytes prn ppx - protonix - hold ac due to thrombocytopenia, mechanical AC only DISPO: patient requires inpatient admission Visit type - Emergency Visit Emergency Visit: Yes ED Registration Date: 06/17/17 Care time: The patient presented to the Emergency Department on the above date and was hospitalized for further evaluation of their emergent condition. - New Patient This patient is new to me today: Yes Date on this admission: 06/18/17 - Critical Care Critical Care patient: No - Discharge Referral Referred to [facility] Med P.C.: No
[2017-06-18 08:23] LABS: CREATININE 0.8 mg/dl (0.6-1.3)
[2017-06-18] MEDS ORDERED: PATIENT'S OWN MEDICATION (NON-FORMULARY) (Omeprazole 40 MG) PO SCH (10:00)
[2017-06-18] MEDS ORDERED: LEUCOVORIN CALCIUM 5 MG PO SCH ×2 (10:00→22:00)
[2017-06-18] MEDS ORDERED: PREGABALIN 50 MG CAPSULE PO SCH (10:00)
[2017-06-18] MEDS ORDERED: BACLOFEN 10 MG TABLET (FP) PO SCH ×3 (10:00→22:00)
[2017-06-18] MEDS ORDERED: PREGABALIN 100 MG CAPSULE PO SCH (10:00)
[2017-06-18] MEDS ORDERED: MONTELUKAST NA 10 MG TABLET PO SCH (10:00)
[2017-06-18] MEDS ORDERED: MONTELUKAST SODIUM 10 MG PO SCH (10:00)
[2017-06-18] MEDS ORDERED: PANTOPRAZOLE 40 MG TABLET (FP) PO SCH (10:00)
[2017-06-18] MEDS ORDERED: metoPROLOL SUCCINATE 25 MG TAB.SR.24H (FP) PO SCH (10:00)
[2017-06-18] MEDS ORDERED: MELOXICAM 7.5 MG PO SCH (10:00)
[2017-06-18] MEDS ORDERED: LISINOPRIL 10 MG TABLET (FP) PO SCH (10:00)
[2017-06-18] MEDS ORDERED: DOCUSATE SODIUM 100 MG CAPSULE (FP) PO SCH ×2 (10:00→14:00)
[2017-06-18] MEDS ORDERED: LEUCOVORIN CALCIUM 5 MG TABLET PO SCH ×2 (10:00)
[2017-06-18 10:12] LABS: PLATELET COUNT 86 K/MM3 (134-434); WHITE BLOOD COUNT 4.2 K/mm3 (4.0-10.8)
[2017-06-18 10:13] LABS: ADD RBC MORPHOLOGY YES
[2017-06-18 10:14] LABS: ANISOCYTOSIS 2+
[2017-06-18 10:15] LABS: PLATELET ESTIMATE ADEQUATE
[2017-06-18] MEDS ORDERED: oxyCODONE HCL 5 MG TABLET PO PRN (10:38)
[2017-06-18] MEDS ORDERED: diphenhydrAMINE HCL 25 MG CAPSULE (FP) PO PRN (10:40)
[2017-06-18] MEDS ORDERED: NICOTINE POLACRILEX 2 MG GUM BUC PRN (10:42)
[2017-06-18] MEDS ORDERED: oxyCODONE HCL 10 MG SUSTAINED ACTING TABLET PO SCH (10:45)
[2017-06-18 14:41] VITALS: BP 148/78; PULSE 63; TEMP 98.9
[2017-06-18] MEDS ORDERED: chlordiazePOXIDE HCL 25 MG CAPSULE PO PRN (18:04)
--- NOTE | 2017-06-18 21:46 | PN ---
Progress Note (short form) - Note Progress Note: Case discussed with Dr. Mead and with hospitalist team PAtient with arthritic/spondylitic C soine with traumatic changes on MRI will need perioperative monitoring of CBC/PT/PTT/ and transfusion support to keep platelets > 100,000 perioperatively and transfer to [facility] , if patient decides on surgery
[2017-06-18] MEDS ORDERED: ASPIRIN COATED 81 MG TABLET.EC PO SCH (22:00)
[2017-06-18] MEDS ORDERED: ATORVASTATIN CA 10 MG TABLET (FP) PO SCH (22:00)
[2017-06-18] MEDS ORDERED: CHLORHEXIDINE GLUCONATE 4% CLEANSER FOR DECOLONIZATION TP SCH (22:00)
[2017-06-18] MEDS ORDERED: traZODone HCL 50 MG TABLET (FP) PO SCH (22:00)
--- NOTE | 2017-06-19 10:39 | EKG ---
Test Reason : Blood Pressure : / mmHG Vent. Rate : 062 BPM Atrial Rate : 062 BPM P-R Int : 212 ms QRS Dur : 082 ms QT Int : 432 ms P-R-T Axes : 073 006 047 degrees QTc Int : 438 ms SINUS RHYTHM WITH 1ST DEGREE A-V BLOCK MODERATE VOLTAGE CRITERIA FOR LVH, MAY BE NORMAL VARIANT BORDERLINE ECG NO PREVIOUS ECGS AVAILABLE Confirmed by MD Roby, Roddy ([id number]) on 06/19/2017 10:39:16 AM Referred By: Dale Odonnell Confirmed By:Roddy Ca MD
--- NOTE | 2017-06-19 12:54 | DS ---
Physical Exam: SUBJECTIVE: patient was discharge prior to discharge summary OBJECTIVE:This is a 71 year old female with a significant past medical history of spinal stenosis, demyelinating polyneuropathy, arthritis who presented to the ED earlier today after falling in the dry mop maker the day before. Pt states that she fell asleep on the toilet and fell and hit her head/neck on tub. Neck was in flexed position. She has been treating neck with heat and ice without relief. On exam, pt reports neck is sore and collar is very uncomfortable. ER course was notable for: (1) CT c spine with odontoid fracture (2) platelet count 83 Vital Signs Period Temp Pulse Resp BP Sys/Fagan Pulse Ox Last 24 Hr 98.9 F 63 17 148/78 PHYSICAL EXAM patient was discharged prior to discharge summary LABS Laboratory Results - last 24 hr 06/18/17 07:[address] of cervical spine w/o contrast: grade 1 anterolisthesis of c3 over c4 and c7 over T1, lucency at base of dense extending to the right lateral mass of C2, w/ o gross displacement, ? non displaced fracture involving the right facet joint of c7-T1 as per radiologist Dr Steinberg chest xray:large heart, scolosiis, hiatal hernia HOSPITAL COURSE: * patient was admitted from the emergency department for a a questionable c2 fracture, patient was placed in a philadephia collar with frequent neurovascular checks at all times. Dr Hannon, neurosurgeon, consulted and followed, case discussed with Dr Hannon, patient may require surgical intervention, MRI of cervical spine reviewed with Dr Mora radiologist, as per Dr Mora, no definitive fracture was noted, however, edema was noted to C1 -c2 with joint effusion,unclear if degenerative changes vs acute fracture. * patient has a pmh of spinal stenosis and chronic pain, continue home dose lyrica, oxycontin and oxycodone, medications verified w/[place] [employer] reference # [id number], patient will require outpatient management with private pain management physician, Dr Frazier * patient has a pmh of hypertension, toprol and lisinopril continued, monitor b/ p q4h * home dose cymbalta and trazadone was continued for anxiety * alcohol use, pt reports drinking 1 glass of wine daily, will monitor for signs of alcohol withdrawal, tobacco use, smoke 2 packs a day, start nicorrette gum * pmh of folic/iron deficency anemia, has received venofer in the past, last dose was may as per patient, continue home dose leucorvin. Thrombocytopenia, patient reports known history, discussed with Dr Mccormick, last plts 05/27, 70's, type and screen sent, close monitoring Note: The patient insists on leaving the Hospital and is signing out against medical advice. The patient understands the risks and complications that may result from the refusal of medical care which may include and permanent disability. The patient has the mental capacity of understanding the risks of refusing care and is capable of making an informed decision. The patient was instructed to return to the Emergency Department should she change her mind regarding medical care or should her condition worsen. The patient signed the Against Medical Advice form. Date of Admission:06/17/17 Date of Discharge: 06/19/17 Minutes to complete discharge: 45 Discharge Summary Reason For Visit: ODONTOID FX TYPE 3 Condition: Guarded - Instructions Disposition: AGAINST MEDICAL ADVICE - Home Medications Comprehensive Discharge Medication List: Ambulatory Orders Baclofen 10 mg PO HS PRN 01/17/13 Levothyroxine [Synthroid -] 50 mcg PO DAILY 01/17/13 Lisinopril [Prinivil -] 20 mg PO BID 01/17/13 Meloxicam [Mobic -] 7.5 mg PO BID 01/17/13 Metoprolol Succinate [Toprol XL -] 25 mg PO BID 01/17/13 Pregabalin [Lyrica] 300 mg PO BID 01/17/13 Aspirin EC 81 PO HS 06/17/17 Atorvastatin Ca [Lipitor] 30 mg PO HS 06/17/17 Baclofen 5 mg PO BID 06/17/17 Diphenhydramine 50 mg PO As needed PRN 06/17/17 Docusate Sodium [Colace] 100 mg PO BID 06/17/17 Duloxetine HCl [Cymbalta] 80 mg PO AM 06/17/17 Leucovorin Calcium 5 mg PO HS 06/17/17 Montelukast Sodium 10 mg PO 06/17/17 Omeprazole 40 mg PO BID 06/17/17 Ranitidine HCl [Zantac] 150 mg PO BID 06/17/17 Trazodone HCl 50 mg PO HS 06/17/17 oxyCODONE SR [Oxycontin] 5 mg PO DAILY PRN 06/17/17 oxyCODONE SR [Oxycontin] 10 mg PO BID 06/17/17 This patient is new to me today: No Emergency Visit: Yes ED Registration Date: 06/17/17 Care time: The patient presented to the Emergency Department on the above date and was hospitalized for further evaluation of their emergent condition. Critical Care patient: No - Discharge Referral Referred to [facility] Med P.C.: No
--- NOTE | 2017-06-19 15:00 | CONSULT ---
Consult - text type - Consultation Consultation Note: NEUROSURGERY CONSULTATON June 18, 2017 Kat Obrien is a 71 year old female with multiple medical problems including Arthritis, Spinal Stenosis, Scoliosis and Thrombocytopenia who suffered a blow to the head when she fell asleep on the toilet on June 17, 2017. She was seen in the ER at [facility] where CT demonstrated suspicion of fractures in C2 (Type 3 odontoid fracture which extended towards Right pars/Hangman's Fracture) as well as possible Right C7 facet fracture which may or may not be acute. There is significant spondylosis and staircase listheses of the subaxial cervical vertebral bodies. Osteophytes encroach into the congenitally narrow spinal canal to cause a temo stenosis of less than 8 mm without taking into account any soft tissue contribution to her stenosis. There appears to be an old vertical crush injury to her Right C1 lateral mass with enlargement of the C12 facet/articular surface on that side as well as lateral listhesis of C1 on C2. There is generalized osteopenia as well as loss of disc space height, particularly at C56. The patient relates a pre-trauma history of progressive neck pain with numbness and tingling in her hands, loss of fine motor skills, weakness, increased tone/spontaneous clonus and imbalance. Given her complex constellation of symptoms with elements of Congenital stenosis, prior and acute trauma, possible Rheumatoid Arthritis/ spondyloarthropathy, Cervical spondylotic myelopathy and potential ligamentous injuries, I felt that MRI would be appropriate to further characterize the nature of her current condition and to plan treatment. I had an extensive discussion with the patient and subsequently with her daughter (over telephone) as well as a series of discussions with other medical colleagues about her condition and the complex nature of the potential treatment options. These discussions lasted for over 2 hours and the majority of the time was spent in consultation/education. I explained that treatment options ranged from immobilization in a rigid cervical collar until her acute fractures would hopefully heal to various procedures for decompression and stabilzation up to and including circumferential decompression and stabilization. I discussed the risks, benefits and alternatives to these treatment options in great detail. Ultimately, the patient decided to sign out of the hospital against medical advice.
== END 2017-06-18 18:50 | disposition left against medical advice (07) | DRG 552 ==
LOC: FER 16:28 → FM/S 20:41
PROVIDERS: ADMIT Internal Medicine; ATTEND Nurse Practitioner Family
DX: S12.120A Other displaced dens fracture, initial encounter for closed fracture (principal); G61.81 Chronic inflammatory demyelinating polyneuritis; W19.XXXA Unspecified fall, initial encounter; Y92.89 Other specified places as the place of occurrence of the external cause; Y99.9 Unspecified external cause status; I10 Essential (primary) hypertension; E78.5 Hyperlipidemia, unspecified; J45.909 Unspecified asthma, uncomplicated; E03.9 Hypothyroidism, unspecified; D69.6 Thrombocytopenia, unspecified; M48.00 Spinal stenosis, site unspecified; F41.8 Other specified anxiety disorders; D50.0 Iron deficiency anemia secondary to blood loss (chronic); F17.210 Nicotine dependence, cigarettes, uncomplicated
CPT/HCPCS: 36415; 71045-TC-FY; 72125-TC; 72156-TC; 80048; 80053; 80307; 83735; 84100; 84443; 85025; 85610; 86850; 86900; 86901; 93005; 94640; 99285-25; J0475; J7030

== ENCOUNTER 2017-07-12 07:42 | Day surgery (SDC) | payer OTHER, MEDICARE ==
[2017-07-12] MEDS ORDERED: IRON SUCROSE INJECTION 200 MG in SODIUM CHLORIDE 100 ML IVPB ONE (10:00)
[2017-07-12 19:09] VITALS: BP 147/87; PULSE 58; TEMP 97.4
== END 2017-07-12 14:10 | disposition home or self-care (01) ==
LOC: JONCNONCHE 07:42 → J7W 14:15
PROVIDERS: ATTEND Internal Medicine Hematology & Oncology
PROC: 3E033GC Introduction of Other Therapeutic Substance into Peripheral Vein, Percutaneous Approach (ICD-10-PCS; principal; 2017-07-12)
DX: D50.9 Iron deficiency anemia, unspecified (principal)
CPT/HCPCS: 96365; J1756

== ENCOUNTER 2017-08-09 19:19 | Emergency (ER) | payer OTHER, MEDICARE ==
--- NOTE | 2017-08-09 19:23 | PDOC ---
History of Present Illness - General History Source: Patient Exam Limitations: No Limitations - History of Present Illness Initial Comments: 08/09/17 20:26 The patient is a 71 year old female brought in by EMS, with a significant past medical history of asthma, crohn's disease (in remission), hiatal hernia, hemorrhoidectomy, hypertension, hyperlipidemia, hypothyroidism, spinal stenosis , and arthritis, who presents to the emergency department for evaluation of head injury s/p syncopal episode. Of note, the patient has been wearing a hard cervical collar since her last discharge 06/19. The patient reports having her cervical collar on and hitting her head on the wooden door of her bathroom this morning around 9am. She reports mild pain on the left side of the frontal head, left wrist pain, and left leg pain. The patient reports she is able to recall what she hit her head on, but is unable to recall the exact details of how she fell. The patient notes she takes her medication at 9am and 9pm, but forgot she took her 9pm medication, inadvertently causing her to double dose her medications by taking another dose of medication at 3am. She reports getting up from bed extremely off balance at 830 am, moments before her fall. The patient reports getting into her bed after her fall and falling asleep until 1230pm. The patient reports driving to her previously scheduled rehabilitation program coordinator appointment at 2pm. After her rehabilitation program coordinator adjusted her, she followed up at an urgent care for evaluation of her head injury. She reports the doctor at the urgent care prompted her to be transported to [facility] for further evaluation. She reports associated symptoms of dull generalized headache, and a mild increase in neck pain, but denies associated acute symptoms. The patient denies chest pain, changes in vision, shortness of breath, fevers, chills, nausea, vomiting, diarrhea, and constipation. Denies dysuria, frequency, urgency, and hematuria. Allergies: Bacitracin, bacitracin zinc, neomycin sulfate, penicillins, polymyxin b, prednisone. Past surgical history: Foot and hip surgery. Partial hysterectomy. Social history: Current everyday smoker. No reported alcohol consumption or drug use. <Hollie Lam - Last Filed: 08/09/17 20:46> <Herminia Coleman - Last Filed: 08/10/17 02:09> - General Chief Complaint: Syncope/Near Syncope Stated Complaint: POSS SYNCOPE W/ HEAD INJURY Time Seen by Provider: 08/09/17 19:22 Past History <Hollie Lam - Last Filed: 08/09/17 20:46> - Past Medical History Anemia: No Asthma: Yes Cancer: No Cardiac Disorders: No CVA: No COPD: No CHF: No Dementia: No Diabetes: No GI Disorders: Yes (CHRONS IN REMISSION, HIATAL HERNIA,HEMORRHOIDECTOMY) Disorders: No HTN: Yes Hypercholesterolemia: Yes Liver Disease: No Seizures: No Thyroid Disease: Yes (HYPOTHYROIDISM) - Surgical History Abdominal Surgery: No Appendectomy: No Cardiac Surgery: No Cholecystectomy: No Lung Surgery: No Neurologic Surgery: Yes Orthopedic Surgery: Yes (LEFT HIP REPLACEMENT) - Suicide/Smoking/Psychosocial Hx Smoking History: Current every day smoker Number of Cigarettes Smoked Daily: 40 'Breaking Loose' booklet given: 06/17/17 Hx Alcohol Use: No Drug/Substance Use Hx: No Substance Use Type: None Hx Substance Use Treatment: No <Herminia Coleman - Last Filed: 08/10/17 02:09> - Past Medical History Allergies/Adverse Reactions: Allergies Allergy/AdvReac Type Severity Reaction Status Date / Time bacitracin Allergy Verified 06/17/17 16:43 [From Neosporin ([id number])] bacitracin zinc Allergy Verified 06/17/17 16:43 [From Neosporin ([id number])] neomycin sulfate Allergy Verified 06/17/17 16:43 [From Neosporin ([id number])] Penicillins Allergy Verified 06/17/17 16:43 polymyxin B Allergy Verified 06/17/17 16:43 [From Neosporin ([id number])] prednisone Allergy Verified 06/17/17 16:43 Home Medications: Ambulatory Orders Baclofen 10 mg PO HS PRN 01/17/13 Levothyroxine [Synthroid -] 50 mcg PO DAILY 01/17/13 Lisinopril [Prinivil -] 20 mg PO BID 01/17/13 Meloxicam [Mobic -] 7.5 mg PO BID 01/17/13 Metoprolol Succinate [Toprol XL -] 25 mg PO BID 01/17/13 Pregabalin [Lyrica] 300 mg PO BID 11/08/13 Aspirin EC 81 PO HS 06/17/17 Atorvastatin Ca [Lipitor] 30 mg PO HS 06/17/17 Baclofen 5 mg PO BID 06/17/17 Diphenhydramine 50 mg PO As needed PRN 06/17/17 Docusate Sodium [Colace] 100 mg PO BID 06/17/17 Duloxetine HCl [Cymbalta] 80 mg PO AM 06/17/17 Leucovorin Calcium 5 mg PO HS 06/17/17 Montelukast Sodium 10 mg PO 06/17/17 Omeprazole 40 mg PO BID 06/17/17 Ranitidine HCl [Zantac] 150 mg PO BID 06/17/17 Trazodone HCl 50 mg PO HS 06/17/17 oxyCODONE SR [Oxycontin] 5 mg PO DAILY PRN 06/17/17 oxyCODONE SR [Oxycontin] 10 mg PO BID 06/17/17 Review of Systems - Review of Systems Able to Perform ROS?: Yes Comments:: All systems are reviewed and negative except as noted in the HPI. <Hollie Lam - Last Filed: 08/09/17 20:46> *Physical Exam - Vital Signs Last Vital Signs Temp Pulse Resp BP Pulse Ox 98.7 F 58 L 16 156/62 95 08/09/17 19:28 08/09/17 19:28 08/09/17 19:28 08/09/17 19:28 08/09/17 19:28 - Physical Exam Comments: GENERAL: (+)Hard cervical collar. The patient is awake, alert, and fully oriented, in no acute distress. HEAD: (+)[id number] mildly tender ecchymotic,non edematous area of left frontal scalp, no abrasion or laceration evident, no other scalp lesions evident. EYES: Pupils equal, round and reactive to light, extraocular movements intact, sclera anicteric, conjunctiva clear. Neck: (+)notable tenderness in c3,c4 area of left paraspinal region. Lungs: (+)scattered bilateral expiratory wheezing, no chest wall tenderness. HEART: Regular rate and rhythm. ABDOMEN: Soft, nontender, normoactive bowel sounds. No guarding, no rebound. No masses. Musculoskeletal: (+)mild tenderness to palpation to anterior aspect of left hip. (+)minimal midline tenderness of L1-L5, no distinct point tenderness in any area of spine. No pain in straight leg raising. EXTREMITIES: (+)[id number] non edematous, ecchymotic area of medial aspect of left knee. Mild tenderness of midline anterior lower portion of knee, with no deformity or ligamentous instability. NEUROLOGICAL: AOx3, fluid speech, lucid. Cranial nerves II through XII grossly intact. PSYCH: Normal mood, normal affect. SKIN: Warm, Dry, normal turgor, no rashes or lesions note <Hollie Lam - Last Filed: 08/09/17 20:46> ED Treatment Course - LABORATORY CBC & Chemistry Diagram: 08/09/17 21:10 08/09/17 21:10 <Herminia Coleman - Last Filed: 08/10/17 02:09> Medical Decision Making - Medical Decision Making Documentation has been prepared under my direction and personally reviewed by me in its entirety. I attest that this documented accurately reflects all work, treatment, procedures and medical decision making performed by me. As noted above, this 71-year-old woman with multiple medical problems who is currently taking narcotic (for chronic back pain) and antianxiety medications presents approximately 12 hours after hitting her head against the bathroom door. Patient had awakened lightheaded after inadvertently doubling her nighttime medications (taking second doses 6 hours after the first). She subsequently had an active day, including driving herself to her rehabilitation program coordinator's office. She presents by ambulance from urgent care for CT imaging. Exam as noted. Recent history notable for odontoid fracture from a fall approximately 6 weeks ago; the patient has been wearing her hard cervical collar as instructed. CT of cervical spine and head performed. While patient was awaiting results of the studies, she was walking actively around the ER as well as walking outside without difficulty in gait. She continued to be awake , alert with fluent speech and full recall of the morning episode and remainder of her day. CT of cervical spine revealed no evidence of new injury as compared to original scan 06/29/[address] of head showed no evidence of acute intracranial pathology. 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 She states that she is comfortable without any further lightheadedness; her gait has been normal throughout the time that she is been in the emergency room (demonstrated by her active walking around the ER and outside). Although she lives alone, she is a close friend who will be able to be with her tomorrow. She will follow-up with her general medical doctor as well as her neurosurgeon within the next week. She should return to the ER if she has any development of headache/nausea or her light headedness recurs. <Herminia Coleman - Last Filed: 08/10/17 02:09> *DC/Admit/Observation/Transfer - Attestations Scribe Attestion: Documentation prepared by Hollie Lam, acting as rn medical inpatient services for Herminia Coleman MD. <Hollie Lam - Last Filed: 08/09/17 20:46> <Herminia Coleman - Last Filed: 08/10/17 02:09> Diagnosis at time of Disposition: Forehead contusion Qualifiers: Encounter type: initial encounter Qualified Code(s): S00.83XA - Contusion of other part of head, initial encounter - Discharge Dispostion Disposition: HOME Condition at time of disposition: Stable - Patient Instructions Printed Discharge Instructions: Closed Head Injury Additional Instructions: Keep head elevated tonight Wear cervical collar at all times as previously Continue medications as previously prescribed Return to ER if you have severe headache/vomiting/persistent lightheadedness Follow-up with your general doctor and neurosurgeon within the next 5 days
[2017-08-09 19:36] VITALS: BP 156/62; PULSE 58; TEMP 98.7; BMI 24.4
[2017-08-09 21:25] LABS: URINE APPEARANCE Clear; URINE BILIRUBIN Negative (NEGATIVE); URINE GLUCOSE (UA) Negative (NEGATIVE); URINE KETONE Negative (NEGATIVE); URINE NITRITE Negative (NEGATIVE); URINE UROBILINOGEN 0.2 (0.2-1.0)
[2017-08-09 21:26] LABS: URINE COLOR YELLOW; URINE LEUK ESTERASE TRACE (NEGATIVE); URINE PROTEIN 2+ (NEGATIVE)
[2017-08-09 21:28] LABS: WHITE BLOOD COUNT 5.8 K/mm3 (4.0-10.8)
[2017-08-09 21:44] LABS: ALBUMIN 3.6 g/dl (3.5-5.0); ALK PHOS 77 U/L (32-92); ANION GAP 5 (8-16); BILIRUBIN,TOTAL 0.5 mg/dl (0.2-1.0); BLOOD UREA NITROGEN 24 mg/dl (7-18); CALCIUM 9.1 mg/dl (8.4-10.2); CHLORIDE 100 mmol/L (98-107); CO2 32 mmol/L (22-28); CREATININE 0.8 mg/dl (0.6-1.3); GLUCOSE,RANDOM 97 mg/dl (74-106); POTASSIUM 3.9 mmol/L (3.5-5.1); SGOT/AST 28 U/L (10-42); SGPT/ALT 14 U/L (10-40); SODIUM 137 mmol/L (136-145); TOT PROT 7.8 g/dl (6.4-8.3)
[2017-08-09 22:16] LABS: HEMATOCRIT 41.9 % (32.4-45.2); HEMOGLOBIN 13.6 GM/dl (10.7-15.3); MCH 30.4 pg (25.7-33.7); MCHC 32.4 g/dl (32.0-36.0); MEAN CELL VOLUME 93.9 fl (80-96); PLATELET COUNT 79 K/MM3 (134-434); RBC 4.46 M/mm3 (3.60-5.2); RDW 20.6 % (11.6-15.6)
[2017-08-09 22:25] LABS: ANISOCYTOSIS 3+; PLATELET ESTIMATE DECREASED
[2017-08-09 22:29] LABS: EPI CELLS FEW /HPF; URINE BACTERIA FEW /hpf (NEGATIVE); URINE RBC 0-2 /hpf (0-3)
== END 2017-08-10 00:01 | disposition home or self-care (01) ==
LOC: FER 19:19
DX: S00.83XA Contusion of other part of head, initial encounter (principal); J45.909 Unspecified asthma, uncomplicated; K50.90 Crohn's disease, unspecified, without complications; I10 Essential (primary) hypertension; E78.5 Hyperlipidemia, unspecified; E03.9 Hypothyroidism, unspecified; W18.30XA Fall on same level, unspecified, initial encounter; Y93.89 Activity, other specified; Y92.9 Unspecified place or not applicable
CPT/HCPCS: 36415; 70450-TC; 72125-TC; 80053; 81003; 81015; 85025; 87086; 99282-25

== ENCOUNTER 2018-12-23 06:44 | Day surgery (SDC) | payer OTHER, MEDICARE ==
[2018-12-23] MEDS ORDERED: IRON SUCROSE INJECTION 200 MG in SODIUM CHLORIDE 100 ML IVPB ONE (10:00)
[2018-12-23 18:43] VITALS: BP 117/49; PULSE 59; TEMP 97.9
== END 2018-12-23 15:20 | disposition home or self-care (01) ==
LOC: JONCNONCHE 06:44 → J7W 14:23 → JONCNONCHE 15:20
PROVIDERS: ATTEND Internal Medicine Hematology & Oncology
PROC: 3E033GC Introduction of Other Therapeutic Substance into Peripheral Vein, Percutaneous Approach (ICD-10-PCS; principal; 2018-12-23)
DX: D50.9 Iron deficiency anemia, unspecified (principal)
CPT/HCPCS: 96365; 96372; J1756